=== PATIENT | male | born 1975 | race Caucasian/White ===

== ENCOUNTER 2017-01-02 22:07 | Emergency (ER) | payer OTHER ==
[~2017-01-02] VITALS: Ht 180.3 cm; Wt 83.9 kg
[~2017-01-02 22:07] MED LIST: BACTRIM DS 8001 TA1 PO; CEPHALEXIN500 M1 PO
[2017-01-02 22:23] LABS: BASO % 0.3 % (0.0-1.0); EOS # 0.6 10*3/uL (0.0-0.4); EOS % 4.3 % (1.0-4.0); HEMATOCRIT 41.5 % (42.0-52.0); IG # 0.1 10*3/uL (0.0-0.1); LYMPH % 31.3 % (27.0-41.0); MEAN CELL VOLUME 97.6 fl (80.0-94.0); MEAN CORPUSCULAR HGB 32.9 pg (27.0-31.0); MEAN CORPUSCULAR HGB CONC 33.7 g/dl (33.0-37.0); MEAN PLATELET VOLUME 8.6 fl (9.6-12.3); MONO # 1.1 10*3/uL (0.1-1.0); NEUT # 6.9 10*3/uL (2.3-7.9); NEUT % 54.6 % (47.0-73.0); PLATELET COUNT AUTOMATED 313 10*3/uL (130-400); RED BLOOD COUNT 4.25 10*6/uL (4.50-5.90); RED CELL DISTRI WIDTH 13.3 % (0-14.5); WHITE BLOOD COUNT 12.7 10*3/uL (4.8-10.8)
[2017-01-02 22:41] LABS: BUN 12 mg/dl (7-24); CARBON DIOXIDE 29 mmol/L (21-32); CHLORIDE 106 mmol/L (98-107); EST GLOM FILT AFRICAN AMERICAN > 60 ml/min; GLUCOSE 125 mg/dL (65-99); POTASSIUM 3.4 mmol/L (3.5-5.1); SODIUM 143 mmol/L (136-145)
[2017-01-02 22:46] LABS: TROPONIN I < 0.015 ng/ml (<0.045)
[2017-01-03 00:30] LABS: URINE AMPHETAMINES < 1000 (1000ng/ml); URINE BARBITURATES < 200 (200ng/ml); URINE COCAINE < 300 (300ng/ml)
== END 2017-01-03 00:25 | disposition home or self-care (01) ==
LOC: ED 22:07
PROVIDERS: Emergency Medicine Emergency Medical Services
DX: T40.2X1A Poisoning by other opioids, accidental (unintentional), initial encounter (principal); Z91.018 Allergy to other foods; Y92.9 Unspecified place or not applicable

== ENCOUNTER 2017-03-25 10:14 | Inpatient (IN) | payer OTHER ==
[~2017-03-25] VITALS: Ht 180.3 cm; Wt 79.8 kg
--- NOTE | 2017-03-25 11:30 | NUR ---
42 year old MALE admitted to room # 408-2 for stabilization. Reports an addiction to HEROIN LAST USE WAS YESTERDAY EVENING prior to admission. Compliant with admission procedure. Patient c/o anxiety. See assessment forms for additional information about patient status.
[2017-03-25 11:45] VITALS: BP 115/71
[2017-03-25 12:41] LABS: BASO % 0.4 % (0.0-1.0); EOS # 0.3 10*3/uL (0.0-0.4); EOS % 3.2 % (1.0-4.0); HEMATOCRIT 43.4 % (42.0-52.0); HEMOGLOBIN 14.7 g/dl (14.0-18.0); LYMPH # 2.1 10*3/uL (1.3-4.4); LYMPH % 25.1 % (27.0-41.0); MEAN CELL VOLUME 97.1 fl (80.0-94.0); MEAN CORPUSCULAR HGB 32.9 pg (27.0-31.0); MEAN CORPUSCULAR HGB CONC 33.9 g/dl (33.0-37.0); MEAN PLATELET VOLUME 8.9 fl (9.6-12.3); MONO # 0.7 10*3/uL (0.1-1.0); MONO % 8.5 % (3.0-9.0); NEUT # 5.3 10*3/uL (2.3-7.9); NEUT % 62.4 % (47.0-73.0); PLATELET COUNT AUTOMATED 270 10*3/uL (130-400); RED BLOOD COUNT 4.47 10*6/uL (4.50-5.90); RED CELL DISTRI WIDTH 13.3 % (0-14.5); WHITE BLOOD COUNT 8.5 10*3/uL (4.8-10.8)
[2017-03-25 12:42] LABS: BILIRUBIN NEGATIVE (NEGATIVE); BLOOD 1+ (NEGATIVE); CLARITY CLOUDY (CLEAR); COLOR YELLOW (YELLOW); GLUCOSE NEGATIVE (NEGATIVE); KETONE NEGATIVE (NEGATIVE); LEUKO ESTERASE NEGATIVE (NEGATIVE); NITRITE NEGATIVE (NEGATIVE); SPECIFIC GRAVITY 1.015 (1.005-1.030); UROBILINOGEN 0.2 E.U./dl (0.2-1.0)
[2017-03-25 12:52] LABS: EPITHELIAL CELLS 0-2
[2017-03-25 12:57] LABS: ALBUMIN 3.6 gm/dl (3.1-4.5); ALKALINE PHOSPHATASE 60 U/L (45-117); BUN 11 mg/dl (7-24); CHLORIDE 108 mmol/L (98-107); CREATININE 0.76 mg/dL (0.70-1.30); POTASSIUM 4.3 mmol/L (3.5-5.1); SGOT/AST 11 IU/L (3-35); SGPT/ALT 17 U/L (12-78); SODIUM 137 mmol/L (136-145); TOTAL PROTEIN 7.5 gm/dL (6.4-8.2)
[2017-03-25 12:59] LABS: URINE AMPHETAMINES < 1000 (1000ng/ml); URINE BARBITURATES < 200 (200ng/ml); URINE BENZODIAZEPINES < 200 (200ng/ml); URINE CANNABINOIDS (THC) > 50 (50ng/ml); URINE COCAINE < 300 (300ng/ml); URINE METHADONE < 300 (300ng/ml); URINE OPIATES > 300 (300ng/ml)
[2017-03-25 13:00] LABS: URINE PHENCYCLIDINE < 25 (25ng/ml)
[2017-03-25 13:00] LABS: ETHYL ALCOHOL < 3.0 mg/dl (<3)
[2017-03-25 16:00] VITALS: BP 146/86
[2017-03-25 20:00] VITALS: BP 120/79
[2017-03-26] VITALS: BP 121/67
--- NOTE | 2017-03-26 01:41 | NUR ---
PT HAS BEEN UP ALL NIGHT STATES THAT HE IS VERY ANXIOUS AND UNABLE TO SLEEP, TRAZODONE GIVEN, INEFECTIVE PT CONTINUES TO PACE UP THROUGHOUT THE HALLS AND HIS ROOM
--- NOTE | 2017-03-26 03:00 | NUR ---
PT RESTING IN BED WITH EYES CLOSED RESPS EASY AND NONLABORED WITH NO S/S OF DISTRESS
[2017-03-26 04:00] VITALS: BP 105/73
--- NOTE | 2017-03-26 05:50 | NUR ---
RESTING IN BED, C/O ANXIETY AND CRAMPS ADMINIATERED VISTRIL AND ROBAXIN PRN PO PER ORDERS, WILL MONITOR EFFECTS, CALL LIGHT WITH IN REACH
--- NOTE | 2017-03-26 06:47 | NUR ---
PRN MEDICATIONS EFFECTIVE AT THIS TIME, RESPS EASY AND NONLABORED WITH NO S/S OF DISTRESS CALL LIGHT WITH IN REACH
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
--- NOTE | 2017-03-26 10:40 | NUR ---
IMODIUM GIVEN FOR C/O DIARRHEA. REQUIP GIVEN FOR C/O RESTLESS LEGS. WILL MONITOR.
[2017-03-26 12:00] VITALS: BP 143/82
--- NOTE | 2017-03-26 12:39 | NUR ---
VISTARIL GIVEN FOR C/O ANXIETY. WILL MONITOR.
[2017-03-26 16:00] VITALS: BP 104/68
--- NOTE | 2017-03-26 16:23 | NUR ---
ATIVAN GIVEN FOR C/O ANXITEY. WILL MONITOR.
--- NOTE | 2017-03-26 19:30 | NUR ---
ASSUMED CARE OF PT AT THIS TIME, PT AMBULATING IN THE HALLWAY AT THIS TIME, NO S/S OF DISTRESS
[2017-03-26 20:00] VITALS: BP 123/106
--- NOTE | 2017-03-26 20:00 | NUR ---
PT REQUESTED AND ADMINSTERED ATIVAN PO PRN PER ORDERS, WILL MONITOR EFFECTS. PT STATES THAT HE WILL SEE THIS NURSE AT 2200 FOR HIS NEXT DOSE OF ATIVAN, EXPLAINED TO PT THAT ATIVAN IS ONLY WHEN NEEDED AND NOT A ROUTINE MEDICATION, PT STATES THAT HE WILL NEED ATIVAN AT 2200, PT ALSO REQUESTED IMMODIUM AT THIS TIME WELL REQUIP AND ROBAXIN, WILL MONITOR EFFECTS
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
--- NOTE | 2017-03-26 23:29 | NUR ---
PT LEFT AMA AT THIS TIME
== END 2017-03-26 23:20 | disposition left against medical advice (07) | DRG 894 ==
LOC: 4E 10:14
PROVIDERS: Registered Nurse; ADMIT Internal Medicine
DX: F11.23 Opioid dependence with withdrawal (principal); E87.8 Other disorders of electrolyte and fluid balance, not elsewhere classified; F12.10 Cannabis abuse, uncomplicated; F17.200 Nicotine dependence, unspecified, uncomplicated; R73.9 Hyperglycemia, unspecified; G25.81 Restless legs syndrome; F41.9 Anxiety disorder, unspecified; Z53.21 Procedure and treatment not carried out due to patient leaving prior to being seen by health care provider; Z83.3 Family history of diabetes mellitus; Z71.6 Tobacco abuse counseling